=== PATIENT | female | born 1990 | race Caucasian/White ===

== ENCOUNTER 2016-07-04 20:59 | Emergency (ER) | payer OTHER, BC ==
[~2016-07-04] VITALS: Ht 172.7 cm; Wt 70.1 kg
[2016-07-04 21:05] VITALS: TEMP 36.8; Ht 172.7 cm; Wt 70.1 kg
[2016-07-04] MEDS ORDERED: DOXYCYCLINE HYCLATE 100 MG CAP PO STA (21:26)
[2016-07-04] MEDS ORDERED: DOXY100C76 PO (21:29)
[2016-07-04] MEDS ORDERED: PRED20TA PO (21:30)
--- NOTE | 2016-07-04 21:30 | EMERGENCY ROOM VISIT NOTE ---
History Report prepared by Keren: Sergey Sahni Under the Supervision of: Dr. Cristin Quinones M.D. First contact with patient: 21:19 Chief Complaint: ALLERGIC REACTION Stated Complaint: ITCHEY EYES,PUFFY EYES,RED EYES,SCRACY THROAT History of Present Illness The patient is a 25 year old female who presents to the Emergency Room with complaints of an allergic reaction beginning 2 days ago. She notes she recently got a cat as a gift and was living with the cat until she could give it as a gift. She notes the area arounds her eyes has become swollen and her eyes have been watery. She took Claritin, Federica, and has applied ice but has seen no relief of her symptoms. The patient also has draining from her left ear at the piercing site which she notes is red and draining pus. Source of History: patient Onset: about 2 days ago Position: other (face) Quality: other (allergic reaction) Timing: other (persistent) Note: The patient notes having facial swelling around her eye, and watery eyes. The patient also has draining from piercing site in her left ear. Review of Systems See HPI for pertinent positives & negatives. A total of 10 systems reviewed and were otherwise negative. Family History No pertinent family history stated. Social History Smoking Status: Never Smoker Marital Status: in relationship Housing Status: lives alone Occupation Status: employed Current/Historical Medications Scheduled Control Pills ( Control Pills), 1 TAB PO DAILY Doxycycline Monohydrate (Monodox), 100 MG PO BID Levofloxacin (Levaquin), 500 MG PO DAILY Prednisone (Prednisone), 20 MG PO DAILY Topiramate (Topamax ), 25 MG PO BID Scheduled PRN Clonazepam (Klonopin), 0.5 MG PO TID PRN for Anxiety Zolpidem Tartrate (Ambien), 5 MG PO HS PRN for Sleep Allergies Coded Allergies: No Known Allergies (Unverified , 07/04/16) Physical Exam Vital Signs Date Time Temp Pulse Resp B/P Pulse Ox O2 Delivery O2 Flow Rate FiO2 07/04/16 21:49 82 19 129/80 97 07/04/16 21:21 Room Air 07/04/16 21:05 36.8 82 19 129/80 97 Room Air Physical Exam CONSTITUTIONAL: No acute distress. HEENT: No icterus, moist mucous membranes. Mild edema of conjunctiva and eyelid bilaterally. Cellulitis of left ear noted. NECK: No meningismus, trachea is midline. CARDIOVASCULAR: Regular rate, normal perfusion RESPIRATORY: Unlabored breathing. Clear to auscultation. GASTROINTESTINAL: Non-tender GENITOURINARY: No flank tenderness MUSCULOSKELETAL: Full range of motion NEUROLOGIC: No acute gross focal deficits. PSYCHIATRIC: Normal affect SKIN: Normal for ethnicity. Medical Decision & Procedures Medications Administered Medications (Trade) Dose Ordered Sig/Germania Route Start Time Stop Time Status Last Admin Dose Admin Prednisone (PredniSONE TAB) 20 mg NOW STAT PO 07/04/16 21:26 07/04/16 21:28 DC 07/04/16 21:47 20 MG Doxycycline Hyclate (Vibramycin Cap) 100 mg NOW STAT PO 07/04/16 21:26 07/04/16 21:28 DC 07/04/16 21:47 100 MG Levofloxacin (Levaquin Tab) 500 mg STK-MED ONCE .ROUTE 07/04/16 21:44 07/04/16 21:45 DC 07/04/16 21:46 500 MG ED Course 2119: Past medical records reviewed. The patient was evaluated in room B11B. A complete history and physical examination was performed. 2125: Ordered Doxycycline Hyclate 100 mg PO, Prednisone 20 mg PO, and Levofloxacin 500 mg PO. 2134: Upon reexamination the patient is hemodynamically stable. I discussed results and treatment plan with the patient. She verbalizes agreement and understanding. The patient is ready for discharge. Medical Decision Differentials include allergic reaction, and cellulitis. 25-year-old presents to the emergency department with progressively worsening pruritus and edema of eyes bilaterally after exposure to cat. She failed to respond to [id number] interventions and subsequently presented to the emergency room. Exam is consistent with a moderate allergic reaction without airway involvement. Prednisone by mouth ordered. Review of systems notable for worsening erythema of left ear status post piercing placement one week ago. Doxycycline and Levaquin ordered. Patient advised to take antibiotics as well as steroids for both conditions and follow up with infectious disease as infections of cartilage can be potentially serious. Impression Primary Impression: Allergic reaction Additional Impression: Cellulitis Scribe Attestation The scribe's documentation has been prepared under my direction and personally reviewed by me in its entirety. I confirm that the note above accurately reflects all work, treatment, procedures, and medical decision making performed by me. Departure Information Dispostion Home / Self-Care Prescriptions Levofloxacin (Levaquin) 500 Mg Tab 500 MG PO DAILY for 10 Days, #10 TAB Prov: Cristin Quinones MD 07/04/16 Prednisone (Prednisone) 20 Mg Tab 20 MG PO DAILY for 4 Days, #4 TAB Prov: Cristin Quinones MD 07/04/16 Doxycycline Monohydrate (Monodox) 100 Mg Cap 100 MG PO BID for 10 Days, #20 CAP Prov: Cristin Quinones MD 07/04/16 Patient Instructions Cellulitis - [facility], ED Allergic Reaction General Other, My [facility] Health Problem Qualifiers
[2016-07-04] MEDS ORDERED: LEVO1TAB33 PO (21:31)
[2016-07-04] MEDS ORDERED: TOPI25TA99 PO (21:38)
[2016-07-04] MEDS ORDERED: BCPILLS PO (21:38)
[2016-07-04] MEDS ORDERED: ZOLP5TAB PO (21:38)
[2016-07-04] MEDS ORDERED: CLON0.5T3 PO (21:38)
[2016-07-04] MEDS ORDERED: LEVOFLOXACIN 250 MG TAB ONE (21:44)
[2016-07-04 21:49] VITALS: BP 129/80; PULSE 82; O2SAT 97
[2016-07-05] MEDS ORDERED: LEVOFLOXACIN 500 MG TAB PO SCH (11:00)
== END 2016-07-04 21:50 | disposition home or self-care (01) ==
LOC: C.EDB 21:02
DX: T78.40XA Allergy, unspecified, initial encounter (principal); H60.12 Cellulitis of left external ear; H11.423 Conjunctival edema, bilateral; H02.846 Edema of left eye, unspecified eyelid; H02.843 Edema of right eye, unspecified eyelid; Z79.899 Other long term (current) drug therapy; X58.XXXA Exposure to other specified factors, initial encounter

== ENCOUNTER 2016-08-16 16:30 | Emergency (ER) | payer BC ==
[~2016-08-16] VITALS: Ht 172.7 cm; Wt 70.5 kg
[~2016-08-16 16:30] MED LIST: BCPILLS PO; CLON0.5T3 PO; TOPI25TA99 PO; ZOLP5TAB PO
[2016-08-16 16:33] VITALS: BP 122/87; TEMP 36.5; Ht 172.7 cm; Wt 70.5 kg
[2016-08-16] MEDS ORDERED: XYLOCAINE 1%/SOD BICARB 20 ML VIAL INFIL ONE (17:00)
[2016-08-16] MEDS ORDERED: CEPH500C PO (17:26)
[2016-08-16 17:42] VITALS: PULSE 72; O2SAT 98
--- NOTE | 2016-08-16 19:56 | EMERGENCY ROOM VISIT NOTE ---
History First contact with patient: 16:40 Chief Complaint: EAR PAIN Stated Complaint: LT EAR INFECTED, CARTILAGE/EARRING LODGE IN EAR History of Present Illness The patient is a 25 year old female who presents to the Emergency Room with complaints of an infection of her left ear, with an enlodged earring. The patient reports that she had her hair done last week, and thinks that her hair being pulled against a new piercing caused it to become infected. The patient reports that she try to keep the wound clean, however reports that the tissue around the earring continued to become more swollen and red. The patient reports that when she awoke the following morning, the top of the earring had slipped into the opening. The patient now reports worsening pain, rating her discomfort a 4 out of 10. Tetanus immunization is up-to-date. Review of Systems 10 system review was performed and was negative except for pertinent positives and negatives as indicated in history of present illness Past Medical/Surgical History Medical Problems: (1) No significant past medical history Surgical Problems: (1) No history of previous surgery Family History Unremarkable Social History Smoking Status: Never Smoker Alcohol Use: occasionally Marital Status: in relationship Housing Status: lives alone Occupation Status: employed Current/Historical Medications Scheduled Control Pills ( Control Pills), 1 TAB PO DAILY Cephalexin Monohydrate (Keflex), 500 MG PO TID Topiramate (Topamax ), 25 MG PO BID Scheduled PRN Clonazepam (Klonopin), 0.5 MG PO TID PRN for Anxiety Zolpidem Tartrate (Ambien), 5 MG PO HS PRN for Sleep Allergies Coded Allergies: No Known Allergies (Unverified , 07/04/16) Physical Exam Vital Signs Date Time Temp Pulse Resp B/P Pulse Ox O2 Delivery O2 Flow Rate FiO2 08/16/16 17:42 72 18 98 08/16/16 16:33 36.5 65 18 122/87 100 Room Air Pain Rating (0-10): 0 Physical Exam CONSTITUTIONAL: Healthy and well nourished. Alert and oriented X 3 with positive affect. She does not appear in any acute distress. HEENT: Examination of the left ear shows a post piercing of the outer margin of the crura of the antihelix. The anterior portion of the ear is erythematous and covers the decorate of part of the earring. Posterior exam shows minimal erythema. There is mild purulent drainage from the anterior ear piercing site. NECK: Full active range of motion without discomfort. MUSCULOSKELETAL: Full range of motion of all joints without discomfort. INTEGUMENTARY: No rash or other significant dermatologic conditions noted. NEUROLOGIC: No focal neurologic deficits noted. Medical Decision & Procedures Procedure ER ring remover was performed under local anesthesia after receiving verbal consent from the patient. The anterior and posterior aspect of the ear was painted with iodine and allowed to dry. Using buffered 1% lidocaine without epinephrine, good local anesthesia was administered anteriorly and posteriorly at the earring site. I initially attempted to remove the earring posteriorly without success. I was then able to push the decorative part of the earring anteriorly through the piercing site. However, I then could not remove the posterior retaining device. I was eventually able to remove the posterior retaining device, and the earring was successfully removed. The wound was then further cleansed, and a thin layer of bacitracin was applied. ED Course Patient history and physical exam were performed. Nurse's notes were reviewed. Earring removal was performed under local anesthesia. I did elect to cover the patient with a short course of Keflex antibiotics. She was encouraged to apply ice for swelling. Ibuprofen or Tylenol as needed for pain. He was happy with plan of care, and denied any significant discomfort at the time of discharge. Medical Decision Impression Primary Impression: Cellulitis of left ear Additional Impression: Retained earring left ear Departure Information Dispostion Home / Self-Care Condition GOOD Prescriptions Cephalexin Monohydrate (Keflex) 500 Mg Cap 500 MG PO TID for 7 Days, #21 CAP Prov: Senthil Jon PA 08/16/16 Forms HOME CARE DOCUMENTATION FORM, IMPORTANT VISIT INFORMATION Patient Instructions My [facility] Additional Instructions Keep wound clean and covered with an antibiotic ointment as needed. Intermittently apply ice as needed for swelling. Ibuprofen 600 mg and/or Tylenol 1000 mg every 8 hours. You may also alternate these medications for more effective pain relief: Ibuprofen --4 HRS--> Tylenol --4 HRS--> ibuprofen --4 HRS--> Tylenol .... Complete all Keflex antibiotics as prescribed. Return to the emergency department for any developing infection, significant swelling, pain or fever. Problem Qualifiers
== END 2016-08-16 17:43 | disposition home or self-care (01) ==
LOC: C.EDB 16:32 → C.EDD 17:43
DX: H60.12 Cellulitis of left external ear (principal); Z18.89 Other specified retained foreign body fragments

== ENCOUNTER → 2016-11-25 | Outpatient (CLI) | payer BC ==
[2016-11-25 12:57] LABS: ESTIMATED AVERAGE GLUCOSE 100 mg/dl; HA1C FLAG Normal (Normal)
[2016-11-25 13:19] LABS: ALB/GLOB RATIO 1.1 (0.9-2); ALT/SGPT 34 U/L (12-78); BLOOD UREA NITROGEN 15 mg/dl (7-18); BUN/CREATININE RATIO 16.3 (10-20); CALCIUM 9.2 mg/dl (8.5-10.1); CARBON DIOXIDE 25 mmol/L (21-32); CHLORIDE 109 mmol/L (98-107); CHOLESTEROL 170 mg/dl (0-200); CHOLESTEROL/HDL RATIO 2.4; CREATININE 0.94 mg/dl (0.60-1.20); GLUCOSE 79 mg/dl (70-99); HDL CHOLESTEROL 71 mg/dl; LDL CHOLESTEROL CALCULATED 80 mg/dl; POTASSIUM 3.9 mmol/L (3.5-5.1); SODIUM 143 mmol/L (136-145); TRIGLYCERIDES 97 mg/dl (0-150); VERY LOW DENSITY LIPOPROT CALC 19 mg/dl
[2016-11-25 13:28] LABS: ALKALINE PHOSPHATASE 48 U/L (45-117); AST/SGOT 19 U/L (15-37)
--- NOTE | 2016-12-01 08:00 | CODING QUERY MEDICAL NECESSITY ---
CQSUPPORTING DIAGNOSIS NEEDED A supporting diagnosis is required for the test/procedure performed on this patient in order for us to be reimbursed by the patient's insurance. Please provide a supporting diagnosis for the following test/procedure listed below next to the test name along with your signature. *If there is no additional diagnosis for this patient that would support the following test/procedure please document that below next to the test/procedure. Test(s)/Procedure(s) that require a supporting diagnosis: DOS 11/25/16 VITAMIN D TEST Provider Signature: Date: Thank you Nereida Mcnamara Health Information Management Once completed, please kindly fax back to [phone] For questions please call [phone]
== END | disposition home or self-care (01) ==
LOC: C.LAB 10:57
PROVIDERS: ATTEND Hospitalist
DX: F32.9 Major depressive disorder, single episode, unspecified (principal); R35.0 Frequency of micturition; E55.9 Vitamin D deficiency, unspecified